=== PATIENT | female | born 1955 | race Caucasian/White ===

== ENCOUNTER 2019-02-20 06:57 | Emergency (ER) | payer OTHER, SELFPAY ==
--- OUTSIDE RECORDS SUMMARY | 2019-02-20 07:00 | XMS REPORT ---
:1955 Author Organization eClinicalWorks Care Team Providers Name Role Phone Hailee Dominguez Provider Role Unavailable Allergies, Adverse Reactions, Alerts Substance Reaction Event Type N.K.D.A. Info Not Available Non Drug Allergy Problems Problem Type Condition Code Onset Dates Condition Status Assessment Osteoporosis M81.0 Active Assessment Hypertension I10 Active Assessment Pelvic pressure in female R10.2 Active Assessment Degeneration of lumbar or M51.37 Active lumbosacral intervertebral disc Assessment Hyperlipidemia E78.5 Active Problem Hyperlipidemia E78.5 Active Problem Hypertension I10 Active Problem Pelvic pressure in female R10.2 Active Problem Unspecified kidney failure N19 Active Problem Osteoporosis M81.0 Active Problem Degeneration of lumbar or M51.37 Active lumbosacral intervertebral disc Problem Other secondary scoliosis, 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 Medications Medication Code Code Instructions Start End Status Dosage System Date Date Losartan [facility] 28634957537 100 Orally Once Active take one Potassium a day tablet by mouth daily Carvedilol [facility] 55833462727 25 MG Active TAKE ONE TABLET BY MOUTH TWICE A DAY Aspirin Adult [facility] 21475180830 81 MG Orally Active 1 tablet Low Strength Once a day Carvedilol [facility] 28415327565 25 Orally BID Active take one tablet by mouth twice a day Crestor [facility] 23192056024 10 MG Orally Active take one Once a day tablet by mouth daily Fosamax [facility] 37862944367 70 MG Orally Dec 30, Active 1 tablet once a week 2019 Gabapentin [facility] 82659529269 300 MG Active TAKE ONE CAPSULE BY MOUTH THREE TIMES A DAY Results No Known Results Summary Purpose eClinicalWorks Submission
--- OUTSIDE RECORDS SUMMARY | 2019-02-20 07:00 | XMS REPORT ---
:1955 Author Organization eClinicalWorks Care Team Providers Name Role Phone Hailee Dominguez Provider Role Unavailable Allergies, Adverse Reactions, Alerts Substance Reaction Event Type N.K.D.A. 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 Problem Unspecified kidney failure N19 Active Medications Medication Code Code Instructions Start End Status Dosage System Date Date Crestor [facility] 00950680830 10 MG Active TAKE ONE TABLET BY MOUTH DAILY Aspirin Adult [facility] 04183525593 81 MG Orally Active 1 tablet Low Strength Once a day Gabapentin [facility] 07472471956 300 MG Active TAKE ONE CAPSULE BY MOUTH THREE TIMES A DAY Losartan [facility] 11760408038 100 Active TAKE ONE Potassium TABLET BY MOUTH DAILY Fosamax [facility] 09454344163 70 MG Active TAKE 1 TABLET BY MOUTH ONCE WEEKLY BEFORE BREAKFAST, ON AN EMPTY STOMACH: REMAIN UPRIGHT FOR 30 MINUTES:TA KE WITH 8 OUNCES OF WATER Carvedilol [facility] 10252201919 25 Active TAKE ONE TABLET BY MOUTH TWICE A DAY Results No Known Results Summary Purpose eClinicalWorks Submission
[2019-02-20] MEDS ORDERED: TETANUS & DIPHTHERIA TOX,ADULT 0.5 ML VIAL ONE (07:26)
--- NOTE | 2019-02-20 07:29 | ER ---
Nurse's Notes [facility] Name: Coty Quinonez Age: 63 yrs Sex: Female : 1955 Arrival Date: 02/20/2019 Time: 07:00 Bed 15 Private MD: Diagnosis: Burn of second degree of right upper arm;Burn of second degree of right forearm Presentation: 02/20 07:15 Presenting complaint: Patient states: 2nd degree burn noted to R arm that occurred at ss 0330 this morning. Patient was at work and tripped with boiling water. Denies pain at this time. Large fluid-filled blisters noted to R upper arm. Transition of care: patient was not received from another setting of care. Onset of symptoms was February 20, 2019 at 03:30. Risk Assessment: Do you want to hurt yourself or someone else? Patient reports no desire to harm self or others. Initial Sepsis Screen: Does the patient meet any 2 criteria? No. Patient's initial sepsis screen is negative. Does the patient have a suspected source of infection? No. Patient's initial sepsis screen is negative. Care prior to arrival: None. 07:15 Method Of Arrival: Ambulatory 07:15 Acuity: OSMAN 4 ss Historical: - Allergies: 07:17 No Known Allergies; ss - Home Meds: 07:17 gabapentin 300 mg oral cap 1 cap 3 times per day [Active]; ss - PMHx: 07:17 Hypertension; ss - Immunization history:: Adult Immunizations up to date. - Social history:: Smoking status: Patient/guardian denies using tobacco. - Ebola Screening: : Patient denies exposure to infectious person Patient denies travel to an Ebola-affected area in the 21 days before illness onset. Screenin:30 Abuse screen: Denies threats or abuse. Denies injuries from another. Nutritional jl7 screening: No deficits noted. Tuberculosis screening: No symptoms or risk factors identified. Fall Risk None identified. Assessment: 07:30 General: Appears in no apparent distress. uncomfortable, Behavior is calm, cooperative, jl7 appropriate for age. Pain: Complains of pain in right arm Quality of pain is described as 'Stinging". Neuro: Level of Consciousness is awake, alert, obeys commands, Oriented to person, place, time, situation. Cardiovascular: Patient's skin is warm and dry. Respiratory: Airway is patent Respiratory effort is even, unlabored, Respiratory pattern is regular, symmetrical. Derm: Skin is pink, warm \\T\\ dry. Injury Description: Burn was sustained 2-4 hours ago. Patient sustained second-degree burn(s) to right arm. Vital Signs: 07:17 BP 198 / 96; Pulse 75; Resp 17; Temp 98.7(TE); Pulse Ox 96% ; Weight 72.57 kg; Height 4 ss ft. 11 in. (149.86 cm); Pain 0/10; 07:45 BP 175 / 90; Pulse 70; Resp 16 S; Pulse Ox 100% on R/A; jl7 07:17 Body Mass Index 32.32 (72.57 kg, 149.86 cm) ss ED Course: 07:00 Patient arrived in ED. am2 07:13 Vincent Trinidad NP is PHCP. pm1 07:13 Tray Spencer MD is Attending Physician. pm1 07:16 Triage completed. ss 07:17 Arm band placed on right wrist. ss 07:20 Malachi Owens RN is Primary Nurse. jl7 07:30 Patient has correct armband on for positive identification. Bed in low position. Call jl7 light in reach. Side rails up X 1. Pulse ox on. NIBP on. 07:54 No provider procedures requiring assistance completed. Patient did not have IV access jl7 during this emergency room visit. 07:54 Burn care of medium second degree burn to right arm rinsed and dressed wet to dry. jl7 Administered Medications: 07:30 Drug: Tetanus-Diphtheria Toxoid Adult 0.5 ml {Nurse Epidemiologist: [employer]. Exp: jl7 09/20/2020. Lot #: [id number]. } Route: IM; Site: left deltoid; 07:51 Follow up: Response: No adverse reaction jl7 07:49 Drug: Bacitracin Ointment (500 unit/g) 1 application Route: Topical; Site: affected jl7 area; 07:50 Follow up: Response: Medication administered at discharge. jl7 07:49 Drug: [place] 5 mg-325 mg 1 tabs Route: PO; jl7 07:57 Follow up: Response: Medication administered at discharge.; RASS: Alert and Calm (0) jl7 Outcome: 07:27 Discharge ordered by . pm1 07:54 Discharged to home ambulatory, with family. jl7 07:54 Condition: stable 07:54 Discharge instructions given to patient, family, Instructed on discharge instructions, follow up and referral plans. medication usage, Demonstrated understanding of instructions, follow-up care, medications, Prescriptions given X 1. 07:58 Patient left the ED. jl7 Signatures: Gladys Moore, RN RN Vincent Trinidad, [employer] FAMILY [employer] ATTORNEY pm1 Malachi Owens RN RN jl7 Carline Schaeffer am2 Corrections: (The following items were deleted from the chart) 07:19 07:15 Acuity: OSMAN 3 ss ss 07:56 07:30 Tetanus-Diphtheria Toxoid Adult 0.5 ml IM in right deltoid Nurse Epidemiologist: [employer] jl7 Biologic Lot: [id number] Exp: 09/20/2020 [facility] 07:57 07:49 Response: Medication administered at discharge. Taras jl7
--- NOTE | 2019-02-20 07:29 | EDPHYS ---
Physician Documentation [facility] Name: Coty Quinonez Age: 63 yrs Sex: Female : 1955 Arrival Date: 02/20/2019 Time: 07:00 Bed 15 Private MD: ED Physician Tray Spencer HPI: 02/20 07:21 This 63 yrs old Female presents to ER via Ambulatory with complaints of Arm pm1 Burn. 07:21 at work, is located on the right arm. Onset: The symptoms/episode began/occurred today, pm1 at 03:30. Burn type and severity: 2nd degree: approximately 4% total body surface area of second degree injury, of the right arm. Associated signs and symptoms: none. Pertinent negatives: singed hair at nares, soot at nares, The patient did not suffer any apparent inhalation injury, The patient had no loss of consciousness. The patient has not experienced similar symptoms in the past. The patient has not recently seen a physician. Patient was cooking and was holding a pot of hot water. Tripped and spilled hot water on her right arm. Patient currently reports no pain. Applied cool compresses to burn. Historical: - Allergies: 07:17 No Known Allergies; ss - Home Meds: 07:17 gabapentin 300 mg oral cap 1 cap 3 times per day [Active]; ss - PMHx: 07:17 Hypertension; ss - Immunization history:: Adult Immunizations up to date. - Social history:: Smoking status: Patient/guardian denies using tobacco. - Ebola Screening: : Patient denies exposure to infectious person Patient denies travel to an Ebola-affected area in the 21 days before illness onset. ROS: 07:21 Constitutional: Negative for fever, chills, and weight loss, Eyes: Negative for injury, pm1 pain, redness, and discharge, ENT: Negative for injury, pain, and discharge, Neck: Negative for injury, pain, and swelling, Cardiovascular: Negative for chest pain, palpitations, and edema, Respiratory: Negative for shortness of breath, cough, wheezing, and pleuritic chest pain, Abdomen/GI: Negative for abdominal pain, nausea, vomiting, diarrhea, and constipation, Back: Negative for injury and pain, MS/Extremity: Negative for injury and deformity. 07:21 Neuro: Negative for headache, weakness, numbness, tingling, and seizure. 07:21 Skin: Positive for burn, of the right arm. Exam: 07:21 Constitutional: This is a well developed, well nourished patient who is awake, alert, pm1 and in no acute distress. Head/Face: Normocephalic, atraumatic. Neck: Trachea midline, no thyromegaly or masses palpated, and no cervical lymphadenopathy. Supple, full range of motion without nuchal rigidity, or vertebral point tenderness. No Meningismus. Chest/axilla: Normal chest wall appearance and motion. Nontender with no deformity. No lesions are appreciated. Cardiovascular: Regular rate and rhythm with a normal S1 and S2. No gallops, murmurs, or rubs. Normal PMI, no JVD. No pulse deficits. Respiratory: Lungs have equal breath sounds bilaterally, clear to auscultation and percussion. No rales, rhonchi or wheezes noted. No increased work of breathing, no retractions or nasal flaring. Back: No spinal tenderness. No costovertebral tenderness. Full range of motion. 07:21 Skin: injury, burn(s), 2nd degree burn injury covers approximately 4% of the total body surface area, and is located on the right bicep, right tricep, and dorsal aspect of right forearm. 07:21 Neuro: Orientation: is normal, Motor: is normal, moves all fours, strength is normal, strength is 5/5 in all extremities, Sensation: is normal, no obvious gross deficits, Gait: is steady, at a normal pace, without difficulty. Vital Signs: 07:17 BP 198 / 96; Pulse 75; Resp 17; Temp 98.7(TE); Pulse Ox 96% ; Weight 72.57 kg; Height 4 ss ft. 11 in. (149.86 cm); Pain 0/10; 07:45 BP 175 / 90; Pulse 70; Resp 16 S; Pulse Ox 100% on R/A; jl7 07:17 Body Mass Index 32.32 (72.57 kg, 149.86 cm) ss MDM: 07:13 Patient medically screened. pm1 07:21 Data reviewed: vital signs. Data interpreted: Pulse oximetry: on room air is 96 %. pm1 Interpretation: normal. Counseling: I had a detailed discussion with the patient and/or guardian regarding: the historical points, exam findings, and any diagnostic results supporting the discharge/admit diagnosis, the need for outpatient follow up, [facility], to return to the emergency department if symptoms worsen or persist or if there are any questions or concerns that arise at home. 02/20 07:21 Order name: Dressing - Wound; Complete Time: 07:50 pm1 Administered Medications: 07:30 Drug: Tetanus-Diphtheria Toxoid Adult 0.5 ml {Manager Food: [employer]. Exp: jl7 09/20/2020. Lot #: [id number]. } Route: IM; Site: left deltoid; 07:51 Follow up: Response: No adverse reaction jl7 07:49 Drug: Bacitracin Ointment (500 unit/g) 1 application Route: Topical; Site: [facility]; 07:50 Follow up: Response: Medication administered at discharge. 07:49 Drug: [place] 5 mg-325 mg 1 tabs Route: PO; 7 07:57 Follow up: Response: Medication administered at discharge.; RASS: Alert and Calm (0) jl7 Disposition: 02/20/19 07:27 Discharged to Home. Impression: Burn of second degree of right upper arm, Burn of second degree of right forearm. - Condition is Stable. - Discharge Instructions: Burn Care, Adult, Second-Degree Burn. - Prescriptions for Tylenol- Codeine #3 300-30 mg Oral Tablet - take 2 tablet by ORAL route every 6 hours As needed; 30 tablet. - Medication Reconciliation Form, Thank You Letter, Antibiotic Education, Prescription Opioid Use form. - Follow up: Emergency Department; When: As needed; Reason: Worsening of condition. Follow up: Private Physician; When: 2 - 3 days; Reason: Recheck today's complaints, Continuance of care, Re-evaluation by your physician. - Problem is new. - Symptoms have improved. - Notes: Apply bacitracin to your burn every 8 hours [facility], [address] [facility] [facility]) 8AM - 4:30PM, Saturday - Saturday [phone] Signatures: Gladys Moore RN RN ss Vincent Trinidad, PLASTER PATTERNMAKER PLASTER PATTERNMAKER pm1 Malachi Owens RN RN jl7 Corrections: (The following items were deleted from the chart) 07:58 07:27 02/20/2019 07:27 Discharged to Home. Impression: Burn of second degree of right jl7 upper arm; Burn of second degree of right forearm. Condition is Stable. Forms are Medication Reconciliation Form, Thank You Letter, Antibiotic Education, Prescription Opioid Use. Follow up: Emergency Department; When: As needed; Reason: Worsening of condition. Follow up: Private Physician; When: 2 - 3 days; Reason: Recheck today's complaints, Continuance of care, Re-evaluation by your physician. Problem is new. Symptoms have improved. pm1
[2019-02-20] MEDS ORDERED: HYDROCODONE/APAP 5/325 MG TAB ONE (07:44)
[2019-02-20] MEDS ORDERED: MUPIROCIN 2% OINT 22GM TUBE TOP ONE (07:44)
== END 2019-02-20 07:58 | disposition home or self-care (01) ==
LOC: ER 06:57
DX: T22.20XA Burn of second degree of shoulder and upper limb, except wrist and hand, unspecified site, initial encounter (principal); T22.211A Burn of second degree of right forearm, initial encounter; X12.XXXA Contact with other hot fluids, initial encounter; Y93.9 Activity, unspecified; Y92.9 Unspecified place or not applicable
CPT/HCPCS: 90471; 90714; 99284

== ENCOUNTER 2019-08-06 06:27 | Day surgery (SDC) | payer SELFPAY ==
[2019-08-03 11:40] LABS: Urine Appearance CLEAR; Urine Bilirubin NEGATIVE (NEG); Urine Blood NEGATIVE (NEG); Urine Color YELLOW; Urine Glucose NEGATIVE (NEG); Urine Protein NEGATIVE (NEG); Urine Specific Gravity <=1.005 (1.005-1.030); Urine Urobilinogen 0.2 mg/dL (0.2-1.0)
[2019-08-03 11:47] LABS: Urine Microscopic Reflex NO UMIC
[2019-08-03 11:57] LABS: Absolute Lymphocytes (CBC) 1.4 K/uL (0.7-4.9); Basophils % 1.1 % (0-1.3); Hematocrit 39.2 % (36.0-45.0); Lymphocytes % 25.6 % (15.3-44.8); MPV 9.7 fL (7.6-11.3); RBC Red Blood Cell Count 4.48 M/uL (3.86-4.86)
--- OUTSIDE RECORDS SUMMARY | 2019-08-06 06:55 | XMS REPORT ---
[...] End Status Dosage System Date Date Crestor [facility] 37333966462 10 MG Active TAKE ONE TABLET BY MOUTH DAILY Aspirin Adult [facility] 23233974799 81 MG Orally Active 1 tablet Low Strength Once a day Gabapentin [facility] 03504057291 300 MG Active TAKE ONE CAPSULE BY MOUTH THREE TIMES A DAY Losartan [facility] 59725484057 100 Active TAKE ONE Potassium TABLET BY MOUTH DAILY Fosamax [facility] 22476595095 70 MG Active TAKE 1 TABLET BY MOUTH ONCE WEEKLY BEFORE BREAKFAST, ON AN EMPTY STOMACH: REMAIN UPRIGHT FOR 30 MINUTES:TA KE WITH 8 OUNCES OF WATER Carvedilol [facility] 75436028998 25 Active TAKE ONE TABLET BY MOUTH TWICE A DAY Results No Known Results Summary Purpose eClinicalWorks Submission
--- OUTSIDE RECORDS SUMMARY | 2019-08-06 06:55 | XMS REPORT ---
:1955 Author Organization [facility] Address [address] [place] [address] Dr. Calhoun [address] [place] [id number] Care Team Providers Name Role Phone Unavailable Unavailable Unavailable Problems This patient has no known problems. Allergies, Adverse Reactions, Alerts This patient has no known allergies or adverse reactions. Medications This patient has no known medications.
--- OUTSIDE RECORDS SUMMARY | 2019-08-06 06:56 | XMS REPORT ---
:1955 Author Organization eClinicalWorks Care Team Providers Name Role Phone Edith Dominguez Provider Role Unavailable Allergies, Adverse Reactions, Alerts Substance Reaction Event Type N.K.D.A. 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 Medications Medication Code Code Instructions Start End Status Dosage System Date Date Losartan [facility] 79890549141 100 Orally Once Active take one Potassium a day tablet by mouth daily Fosamax [facility] 20320898435 70 MG Orally Jun 29, Active 1 tablet once a week 2018 Carvedilol [facility] 92141409946 25 Orally BID Active take one tablet by mouth twice a day Gabapentin [facility] 28696787917 300 MG Active TAKE ONE CAPSULE BY MOUTH THREE TIMES A DAY Crestor [facility] 95708515384 10 MG Orally Active take one Once a day tablet by mouth daily Aspirin Adult [facility] 34725206116 81 MG Orally Active 1 tablet Low Strength Once a day Results No Known Results Summary Purpose eClinicalWorks Submission
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
--- OUTSIDE RECORDS SUMMARY | 2019-08-06 06:56 | XMS REPORT ---
[...] End Status Dosage System Date Date Losartan [facility] 82451347325 100 Orally Once Active take one Potassium a day tablet by mouth daily Carvedilol [facility] 73976646681 25 MG Active TAKE ONE TABLET BY MOUTH TWICE A DAY Aspirin Adult [facility] 90467715077 81 MG Orally Active 1 tablet Low Strength Once a day Carvedilol [facility] 45448346868 25 Orally BID Active take one tablet by mouth twice a day Crestor [facility] 05761135003 10 MG Orally Active take one Once a day tablet by mouth daily Fosamax [facility] 60192989372 70 MG Orally Dec 30, Active 1 tablet once a week 2019 Gabapentin [facility] 41671047953 300 MG Active TAKE ONE CAPSULE BY MOUTH THREE TIMES A DAY Results No Known Results Summary Purpose eClinicalWorks Submission
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
[2019-08-06] MEDS ORDERED: CEFAZOLIN/SWI 2gm 2 GM/20 ML SYR ONE (07:01)
[2019-08-06] MEDS ORDERED: Ringers Lactate 1,000 ML IV ONE ×2 (07:01→07:10)
[2019-08-06] MEDS ORDERED: SCOPOLAMINE HYDROBROMIDE PATCH TD ONE (07:01)
[2019-08-06] MEDS ORDERED: NA CHLORIDE 0.9% 100 ML IV ONE (07:10)
[2019-08-06] MEDS ORDERED: BUPIVACAINE 0.25% PF 30 ML VIAL ONE (07:10)
[2019-08-06] MEDS ORDERED: CEFAZOLIN/SWI 1gm 1 GM/10 ML SYR ONE ×2 (07:11→09:56)
[2019-08-06] MEDS ORDERED: dexAMETHasone 10 MG/ML VIAL ONE (07:17)
[2019-08-06] MEDS ORDERED: propofoL 200 MG/20 ML VIAL IV ONE (07:17)
[2019-08-06] MEDS ORDERED: ROCURONIUM 50 MG/5 ML VIAL IV ONE (07:17)
[2019-08-06] MEDS ORDERED: GLYCOPYRROLATE 0.2 MG/ML SYR ONE (07:17)
[2019-08-06] MEDS ORDERED: LIDOCAINE 2% MPF 5 ML VIAL ONE (07:17)
[2019-08-06] MEDS ORDERED: MIDAZOLAM HCL 2 MG/2 ML INJ ONE (07:18)
[2019-08-06] MEDS ORDERED: FENTANYL CITR 250 MCG/5 ML ONE ×2 (07:18→11:06)
[2019-08-06] MEDS ORDERED: ONDANSETRON 4 MG/2 ML VIAL ONE (07:18)
[2019-08-06] MEDS ORDERED: EPHEDRINE SULF 50 MG/ML VIAL ONE (08:10)
[2019-08-06] MEDS: VASOPRESSIN 20 UNIT/ML VIAL ONE ×2 (09:27→13:10)
[2019-08-06] MEDS: Ringers Lactate 1,000 ML IV ONE ×2 (13:02→13:17)
[2019-08-06] MEDS ORDERED: KETOROLAC 30 MG/ML INJ ONE (14:08)
[2019-08-06] MEDS ORDERED: METHYLENE BLUE 0.5% 10 ML AMP ONE (14:31)
[2019-08-06] MEDS ORDERED: IBUPROFEN 600 MG TAB PO PRN (14:36)
[2019-08-06] MEDS ORDERED: PROMETHAZINE INJ 25 MG/ML AMP IV PRN (14:36)
[2019-08-06] MEDS ORDERED: MORPHINE 4 MG/ML SYR IV PRN (14:36)
[2019-08-06] MEDS ORDERED: ONDANSETRON 4 MG/2 ML VIAL IV PRN (14:36)
--- NOTE | 2019-08-06 14:49 | P.BOP ---
Preoperative diagnosis: pelvic pain, incomplete uterovaginal prolapse, KRSYTAL Postoperative diagnosis: same Primary procedure: TLH BSO LSCP (TVT-O)MUS cysto, post repair, perineorrhaphy Commercial Plumber: Xin Vences Estimated blood loss: 50 Specimen: uterus tubes and ovaries Findings: 0/+3/0/5/mod/7/-1/-2/-2, site specific distal 1/3rd midline defect Anesthesia: General Complications: None Drain(s): Urinary catheter Implants: upsylon mesh and TVT-O Transferred to: Recovery Room
[2019-08-06 14:52] VITALS: O2SAT 95
[2019-08-06] MEDS: Ringers Lactate 1,000 ML IV SCH ×2 (15:00→18:00)
[2019-08-06] MEDS: CEFAZOLIN/SWI 1gm 1 GM/10 ML SYR IVP SCH (17:00)
[2019-08-06 17:44] VITALS: BMI 36.8
--- NOTE | 2019-08-06 18:14 | P.CNS ---
Date of Consult: 08/06/19 Reason for Consult: uncontrolled blood pressure Primary Care Provider: Edith Dominguez History of Present Illness: The patient is a 63-year-old female with past medical history of hypertension, hyperlipidemia, neuropathy and degenerative disk disease who was admitted to the hospital for TLHBSO by Dr. Sharma. The patient did well postoperatively. However has developed uncontrolled blood pressure. Systolic blood pressure has been in the 180s to 190s. Patient is scheduled for her Coreg dose tonight. She denies any nausea vomiting headache shortness of breath blurry Vision or chest pain. The patient's blood pressure usually runs in the 150 s at home. Patient's symptoms are constant moderate progressively worsening Allergies No Known Allergies Allergy (Verified 08/03/19 10:58) Home medications list reviewed: Yes Home Medications: Alendronate Sodium 70 mg PO SEECOM 08/03/19 Aspirin 81 mg PO DAILY 08/03/19 Carvedilol [Coreg] 25 mg PO BID 08/03/19 Cholecalciferol (Vitamin D3) [Vitamin D3] 2,000 unit PO DAILY 08/03/19 Estrogens,Conj Cream [Premarin 0.625MG/Gm] 42.5 appl VAG SEECOM 08/03/19 Gabapentin 300 mg PO BID 08/03/19 Rosuvastatin Calcium 10 mg PO DAILY 08/03/19 Valsartan/Hydrochlorothiazide [Valsartan-Hctz 160-12.5 mg Tab] 1 each PO DAILY 08/06/19 - Past Medical/Surgical History Diabetic: No -: degenerative joint disease -: HTN -: Dyslipidemia -: Neuropathy -: TAHBSO - Family History Mother Medical History: Hypertension, Diabetes, Stroke, Cancer Notes: breast CA, Diabetes, HTN - Social History Smoking Status: Never smoker Alcohol use: No CD- Drugs: No Place of Residence: Home Review of Systems 10-point ROS is otherwise unremarkable Physical Examination Temp Pulse Resp BP Pulse Ox 98.6 F 85 18 180/96 H 08/06/19 17:30 08/06/19 17:30 08/06/19 17:30 08/06/19 17:30 General: Alert, Oriented x3, Mild distress, Obese HEENT: Atraumatic, PERRLA, Mucous membr. moist/pink, EOMI, Sclerae nonicteric Neck: Supple, Without JVD or thyroid abnormality Respiratory: Clear to auscultation bilaterally, Normal air movement Cardiovascular: No edema, Normal pulses, Regular rate/rhythm, Normal S1 S2, Systolic murmur Gastrointestinal: Normal bowel sounds, Soft and benign, Non-distended, No tenderness Musculoskeletal: No tenderness Integumentary: No rashes Neurological: Normal speech, Normal strength at 5/5 x4 extr, Normal tone, Cranial nerves 3-12 intact, Normal affect Laboratory Tests 08/03/19 08/03/19 08/03/19 11:13 11:13 11:13 WBC 5.7 RBC 4.48 Hgb 13.1 Hct 39.2 MCV 87.5 MCH 29.2 MCHC 33.4 RDW 13.6 Plt Count 243 MPV 9.7 Neutrophils % 63.5 Lymphocytes % 25.6 Monocytes % 6.1 Eosinophils % 3.7 Basophils % 1.1 Absolute Neutrophils 3.6 Absolute Lymphocytes 1.4 Absolute Monocytes 0.3 Absolute Eosinophils 0.2 Absolute Basophils 0.1 Urine Color Yellow Urine Appearance Clear Urine pH 7.0 Ur Specific [place] <=1.005 Glucose (UA)(Auto) Negative Urine Ketones Negative Urine Blood Negative Urine Nitrite Negative Urine Bilirubin Negative Urine Urobilinogen 0.2 Ur Leukocyte Esterase Negative Urine Total Protein Negative ABO/Rh O POSITIVE Solid Phase Ab Screen Negative 08/03/19 11:23 WBC RBC Hgb Hct MCV MCH MCHC RDW Plt Count MPV Neutrophils % Lymphocytes % Monocytes % Eosinophils % Basophils % Absolute Neutrophils Absolute Lymphocytes Absolute Monocytes Absolute Eosinophils Absolute Basophils Urine Color Urine Appearance Urine pH Ur Specific [place] Glucose (UA)(Auto) Urine Ketones Urine Blood Urine Nitrite Urine Bilirubin Urine Urobilinogen Ur Leukocyte Esterase Urine Total Protein ABO/Rh O POSITIVE Solid Phase Ab Screen - Problems (1) Uncontrolled hypertension Current Visit: Yes Status: Acute (2) Hyperlipidemia Current Visit: Yes Status: Acute Qualifiers: Hyperlipidemia type: mixed hyperlipidemia Qualified Code(s): E78.2 - Mixed hyperlipidemia (3) Neuropathy Current Visit: Yes Status: Acute (4) Degenerative disk disease Current Visit: Yes Status: Acute Qualifiers: Spinal region: lumbar Qualified Code(s): M51.36 - Other intervertebral disc degeneration, lumbar region (5) Osteoporosis Current Visit: Yes Status: Acute Qualifiers: Osteoporosis type: age-related Presence of current pathological fracture: without current pathological fracture Qualified Code(s): M81.0 - Age-related osteoporosis without current pathological fracture Conclusions/Impression: Patient is a 63-year-old female with uncontrolled hypertension. May be related to acute pain post surgical. Will add hydralazine for uncontrolled pressure to keep systolic <160s range. Decrease IV fluids to 100 mL/hour Continue with Coreg tonight and valsartan HCTZ combo in a.m. check BMP in a.m. Continue statin for hyperlipidemia Continue Neurontin for neuropathy Postsurgical care as per Dr. Sharma Medications reviewed
[2019-08-06] MEDS ORDERED: Ringers Lactate 1,000 ML IV SCH (18:17)
[2019-08-06] MEDS ORDERED: HYDRALAZINE HCL 20 MG/ML VIAL IV PRN (18:18)
[2019-08-06] MEDS: HYDROCODONE/APAP 5/325 MG TAB PO PRN (19:26)
[2019-08-06] MEDS: carvediloL 25 MG TAB PO SCH (20:54)
[2019-08-06] MEDS: GABAPENTIN 300 MG CAP PO SCH (20:57)
[2019-08-07] MEDS: CEFAZOLIN/SWI 1gm 1 GM/10 ML SYR IVP SCH ×2 (00:50→10:00)
[2019-08-07] MEDS: HYDROCODONE/APAP 5/325 MG TAB PO PRN (04:18)
[2019-08-07 04:49] LABS: Basophils % 0.3 % (0-1.3); Hematocrit 34.8 % (36.0-45.0); Lymphocytes % 7.1 % (15.3-44.8); MPV 9.2 fL (7.6-11.3); RBC Red Blood Cell Count 3.99 M/uL (3.86-4.86)
[2019-08-07 05:21] LABS: Potassium 4.6 mmol/L (3.5-5.1)
[2019-08-07 07:21] VITALS: BP 128/65; TEMP 97.2
[2019-08-07] MEDS ORDERED: VALSARTAN PO SCH (09:00)
[2019-08-07] MEDS ORDERED: VALSARTAN 160 MG TAB PO SCH (09:00)
[2019-08-07] MEDS ORDERED: hydroCHLOROthiazide 12.5 MG CAP PO SCH (09:00)
[2019-08-07] MEDS ORDERED: HYDROCHLOROTHIAZIDE PO SCH (09:00)
[2019-08-07] MEDS ORDERED: ROSUVASTATIN 10 MG TAB PO SCH (09:00)
[2019-08-07] MEDS ORDERED: [UNRECOGNIZED DRUG - OTHER] PO SCH (09:00)
[2019-08-07] MEDS: carvediloL 25 MG TAB PO SCH (10:00)
[2019-08-07] MEDS: GABAPENTIN 300 MG CAP PO SCH (10:00)
--- NOTE | 2019-08-07 10:55 | P.PN ---
Subjective Date of Service: 08/07/19 Primary Care Provider: Edith Dominguez Chief Complaint: HTN Subjective: No new changes, Improving, Doing well Patient seen and examined. chart reviewed and case discussed w new accounts clerk of Systems 10-point ROS is otherwise unremarkable Physical Examination - Vital Signs Temperature: 97.2 F Blood Pressure: 128/65 Pulse: 61 Respirations: 18 - Physical Exam General: Alert, Oriented x3, Mild distress, Obese HEENT: Atraumatic, PERRLA, EOMI Neck: Supple, JVD not distended Respiratory: Clear to auscultation bilaterally, Normal air movement Cardiovascular: No edema, Normal pulses, Regular rate/rhythm, Normal S1 S2 Gastrointestinal: Normal bowel sounds, Soft and benign, Non-distended, No tenderness Musculoskeletal: No tenderness Integumentary: No rashes Neurological: Normal speech, Normal strength at 5/5 x4 extr, Normal tone, Normal affect - Studies Laboratory Data (last 24 hrs) 08/07/19 04:35: Sodium 141, Potassium 4.6, BUN 21 H, Creatinine 1.25, Glucose 117 H 08/07/19 04:35: WBC 14.3 H D, Hgb 11.5 L, Hct 34.8 L, Plt Count 213 Medications List Reviewed: Yes Assessment And Plan - Current Problems (Diagnosis) (1) Uncontrolled hypertension Current Visit: Yes Status: Acute Plan: continue HCTZ/valsartan, coreg. stable. (2) Hyperlipidemia Current Visit: Yes Status: Acute Qualifiers: Hyperlipidemia type: mixed hyperlipidemia Qualified Code(s): E78.2 - Mixed hyperlipidemia (3) Neuropathy Current Visit: Yes Status: Acute Plan: neurontin (4) Degenerative disk disease Current Visit: Yes Status: Acute Qualifiers: Spinal region: lumbar Qualified Code(s): M51.36 - Other intervertebral disc degeneration, lumbar region (5) Osteoporosis Current Visit: Yes Status: Acute Qualifiers: Osteoporosis type: age-related Presence of current pathological fracture: without current pathological fracture Qualified Code(s): M81.0 - Age-related osteoporosis without current pathological fracture - Plan BP stable on home meds in 120s systolic. continue current care. Labs reviewed. Surgical management per Dr. Sharma Will follow along with you.
== END 2019-08-07 11:10 | disposition home or self-care (01) ==
LOC: PRE 06:27 → 2ND-WC 14:36 → PRE 08-07 11:10
PROVIDERS: ATTEND Obstetrics & Gynecology
PROC: 0UT24ZZ Resection of Bilateral Ovaries, Percutaneous Endoscopic Approach (ICD-10-PCS; 2019-08-06)
PROC: 0UT74ZZ Resection of Bilateral Fallopian Tubes, Percutaneous Endoscopic Approach (ICD-10-PCS; 2019-08-06)
PROC: 0USG7ZZ Reposition Vagina, Via Natural or Artificial Opening (ICD-10-PCS; 2019-08-06)
PROC: 0TSD0ZZ Reposition Urethra, Open Approach (ICD-10-PCS; 2019-08-06)
PROC: 0JQC0ZZ Repair Pelvic Region Subcutaneous Tissue and Fascia, Open Approach (ICD-10-PCS; 2019-08-06)
PROC: 0WQNXZZ Repair Female Perineum, External Approach (ICD-10-PCS; 2019-08-06)
PROC: 0UT94ZZ Resection of Uterus, Percutaneous Endoscopic Approach (ICD-10-PCS; principal; 2019-08-06 07:30)
DX: N81.2 Incomplete uterovaginal prolapse (principal); N39.3 Stress incontinence (female) (male); N32.81 Overactive bladder; R10.2 Pelvic and perineal pain; R39.14 Feeling of incomplete bladder emptying; I10 Essential (primary) hypertension; M81.0 Age-related osteoporosis without current pathological fracture; E78.2 Mixed hyperlipidemia; G62.9 Polyneuropathy, unspecified; M51.36 Other intervertebral disc degeneration, lumbar region; Z79.82 Long term (current) use of aspirin; Z80.3 Family history of malignant neoplasm of breast; Z80.41 Family history of malignant neoplasm of ovary; Z83.3 Family history of diabetes mellitus; Z82.3 Family history of stroke; Z82.49 Family history of ischemic heart disease and other diseases of the circulatory system
CPT/HCPCS: 36415; 80048; 81003; 85025; 86850; 86900; 86901; 88305; 88307; J0360; J0690; J1100; J2250; J2405; J2704; J3010; J7120